=== PATIENT | female | born 1990 | race Caucasian/White ===

== ENCOUNTER 2016-11-19 13:58 | Emergency (ER) | payer BC, OTHER ==
[~2016-11-19] VITALS: Ht 165.1 cm; Wt 116.8 kg
[~2016-11-19 13:58] MED LIST: BUPR-79 PO; GLC/500 PO
[2016-11-19 14:01] VITALS: TEMP 37.7; Ht 165.1 cm; Wt 116.8 kg
[2016-11-19] MEDS ORDERED: SODIUM CHLORIDE 0.9% 1000ML 1,000 ML IV STA (14:08)
[2016-11-19] MEDS ORDERED: ONDANSETRON INJ 2 MG/ML 2 ML VIAL IV STA (14:08)
[2016-11-19 14:36] LABS: URINE APPEARANCE CLEAR (CLEAR); URINE BILIRUBIN NEG (NEG); URINE COLOR DK YELLOW; URINE NITRITE NEG (NEG); URINE SPECIFIC GRAVITY 1.027 (1.000-1.030); UROBILINOGEN NEG (NEG); ZZUR CULT IF INDIC CLEAN CATCH NO
[2016-11-19 14:40] LABS: MANUAL MICROSCOPIC REQUIRED? NO; REVIEW REQ? NO
[2016-11-19 14:43] LABS: BASO % 0.1 %; BASO ABS # 0.02 K/uL (0-0.2); COMPLETE YES; EOS % 0.5 %; HEMATOCRIT 42.6 % (37-47); IG% 0.3 %; LYMPH % 4.6 %; MEAN CELL VOLUME 87.1 fL (80-100); MEAN CORPUSCULAR HEMOGLOBIN 29.9 pg (25-34); MEAN CORPUSCULAR HGB CONC 34.3 g/dl (32-36); MEAN PLATELET VOLUME 9.1 fL (7.4-10.4); MONO % 2.6 %; NEUT % 91.9 %; PLATELET COUNT 298 K/uL (130-400); RED BLOOD COUNT 4.89 M/uL (4.2-5.4); WHITE BLOOD COUNT 17.43 K/uL (4.8-10.8)
[2016-11-19] MEDS ORDERED: KETOROLAC TROMETHAMINE 30 MG/ML VIAL IV STA (14:55)
[2016-11-19 15:04] LABS: BUN/CREATININE RATIO 13.8 (10-20); CREATININE 0.76 mg/dl (0.60-1.20); POTASSIUM 3.7 mmol/L (3.5-5.1)
--- NOTE | 2016-11-19 15:13 | EMERGENCY ROOM VISIT NOTE ---
History First contact with patient: 14:04 Chief Complaint: VOMITING Stated Complaint: FLU LIKE, VOMITING, DIARRHEA, PAIN Nursing Triage Summary: pt c/o diarrhea vomiting and back pain strated at 0400 this am History of Present Illness The patient is a 26 year old female who presents to the Emergency Room with complaints of flulike symptoms which began this morning. The patient states that approximately 10 hours ago, she was at work and began to feel very fatigued. She then developed vomiting and diarrhea and has had approximately 10 episodes each of vomiting and diarrhea since then. She reports she has body aches. She is unsure if she has had fevers. She has not taken any medication for her symptoms. She rates her overall discomfort a 10/10. She denies any abdominal pain, chest pain, cough, shortness of breath, headache, neck pain/ stiffness, or urinary symptoms. She denies any sick contacts. Review of Systems A complete 10-point Review of Systems was discussed with the patient, with pertinent positives and negatives listed in the History of Present Illness. All remaining Review of Systems questions can be considered negative unless otherwise specified. Past Medical/Surgical History Surgical Problems: (1) Hx of cholecystectomy (2) Hx of tonsillectomy Family History Cancer Diabetes mellitus Gallbladder disease Hypertension Social History Smoking Status: Current Every Day Smoker Alcohol Use: none Drug Use: none Marital Status: single Housing Status: lives with family Occupation Status: employed Current/Historical Medications Scheduled Ondasetron Odt (Zofran Odt), 4 MG SL Q6H Allergies Coded Allergies: No Known Allergies (Verified , 11/19/16) Physical Exam Vital Signs Date Time Temp Pulse Resp B/P Pulse Ox O2 Delivery O2 Flow Rate FiO2 11/19/16 16:06 94 18 102/53 97 Room Air 11/19/16 14:01 37.7 90 20 135/81 97 Room Air Physical Exam VITALS: Vitals are noted on the nurse's note and reviewed by myself. Vital signs stable. GENERAL: This is a 26-year-old female, in no acute distress, nontoxic in appearance, well-developed well-nourished. SKIN: Capillary reflex less than 2 seconds. HEENT: Normocephalic. PERRLA. EOMI. Nares patent. Mucous membranes moist. Neck is supple without nuchal rigidity. HEART: Regular rate and rhythm without murmurs gallops or rubs. LUNGS: Clear to auscultation bilaterally without wheezes, rales or rhonchi. ABDOMEN: Positive bowel sounds x 4. Soft, nontender to palpation. NEURO: Patient was alert and oriented to person place and time. Medical Decision & Procedures Laboratory Results 11/19/16 14:24 Red Blood Count 4.89, Mean Corpuscular Volume 87.1, Mean Corpuscular Hemoglobin 29.9, Mean Corpuscular Hemoglobin Concent 34.3, Mean Platelet Volume 9.1, Neutrophils (%) (Auto) 91.9, Lymphocytes (%) (Auto) 4.6, Monocytes (%) (Auto) 2.6, Eosinophils (%) (Auto) 0.5, Basophils (%) (Auto) 0.1, Neutrophils # (Auto) 16.03, Lymphocytes # (Auto) 0.80, Monocytes # (Auto) 0.45, Eosinophils # (Auto) 0.08, Basophils # (Auto) 0.02 11/19/16 14:24 Test 11/19/16 14:20 11/19/16 14:24 Urine Color DK YELLOW Urine Appearance CLEAR (CLEAR) Urine pH 5.0 (4.5-7.5) Urine Specific [place] 1.027 (1.000-1.030) Urine Protein NEG (NEG) Urine Glucose (UA) NEG (NEG) Urine Ketones NEG (NEG) Urine Occult Blood NEG (NEG) Urine Nitrite NEG (NEG) Urine Bilirubin NEG (NEG) Urine Urobilinogen NEG (NEG) Urine Leukocyte Esterase NEG (NEG) Urine Test NEG (NEG) Influenza Type A Antigen Neg for Influ A (NEG) Influenza Type B Antigen Neg for Influ B (NEG) White Blood Count 17.43 K/uL (4.8-10.8) Red Blood Count 4.89 M/uL (4.2-5.4) Hemoglobin 14.6 g/dL (12.0-16.0) Hematocrit 42.6 % (37-47) Mean Corpuscular Volume 87.1 fL (80-100) Mean Corpuscular Hemoglobin 29.9 pg (25-34) Mean Corpuscular Hemoglobin Concent 34.3 g/dl (32-36) Platelet Count 298 K/uL (130-400) Mean Platelet Volume 9.1 fL (7.4-10.4) Neutrophils (%) (Auto) 91.9 % Lymphocytes (%) (Auto) 4.6 % Monocytes (%) (Auto) 2.6 % Eosinophils (%) (Auto) 0.5 % Basophils (%) (Auto) 0.1 % Neutrophils # (Auto) 16.03 K/uL (1.4-6.5) Lymphocytes # (Auto) 0.80 K/uL (1.2-3.4) Monocytes # (Auto) 0.45 K/uL (0.11-0.59) Eosinophils # (Auto) 0.08 K/uL (0-0.5) Basophils # (Auto) 0.02 K/uL (0-0.2) RDW Standard Deviation 42.0 fL (36.4-46.3) RDW Coefficient of Variation 13.2 % (11.5-14.5) Immature Granulocyte % (Auto) 0.3 % Immature Granulocyte # (Auto) 0.05 K/uL (0.00-0.02) Anion Gap 8.0 mmol/L (3-11) Est Creatinine Clear Calc Drug Dose 144.6 ml/min Estimated GFR () 126.4 Estimated GFR (Non- 109.0 BUN/Creatinine Ratio 13.8 (10-20) Calcium Level 9.0 mg/dl (8.5-10.1) Total Bilirubin 0.7 mg/dl (0.2-1) Aspartate Amino Transf (AST/SGOT) 18 U/L (15-37) Alanine Aminotransferase (ALT/SGPT) 26 U/L (12-78) Alkaline Phosphatase 42 U/L (45-117) Total Protein 8.5 gm/dl (6.4-8.2) Albumin 4.2 gm/dl (3.4-5.0) Globulin 4.3 gm/dl (2.5-4.0) Albumin/Globulin Ratio 1.0 (0.9-2) Lipase 103 U/L (73-393) Medications Administered Medications (Trade) Dose Ordered Sig/[place] Route Start Time Stop Time Status Last Admin Dose Admin Sodium Chloride (Nss 1000ml) 1,000 ml @ 999 mls/hr Q1H1M STAT IV 11/19/16 14:08 11/19/16 15:08 DC 11/19/16 14:33 999 MLS/HR Ondansetron HCl (Zofran Inj) 4 mg NOW STAT IV 11/19/16 14:08 11/19/16 14:13 DC 11/19/16 14:34 4 MG Ketorolac Tromethamine (Toradol Inj) 30 mg NOW STAT IV 11/19/16 14:55 11/19/16 14:56 DC 11/19/16 15:25 30 MG Medical Decision Differential diagnosis includes gastroenteritis, influenza, viral syndrome, colitis, appendicitis, cholecystitis, among others. The patient was evaluated as above. Labs were drawn and IV access was obtained. Imaging studies were performed and read by radiology as above. The patient was medicated with normal saline solution, 4 mg Zofran IV and 30 mg Toradol IV. The patient was reassessed multiple times during their stay in the emergency department and remained in stable condition. The patient is a 26-year-old female who presents today complaining of vomiting, diarrhea and body aches. Labs revealed a leukocytosis consistent with infection or vomiting. No anemia or concerning electrolyte abnormalities. Urinalysis was not suggestive of infection. Urine was negative. Influenza was negative. The patient felt better after IV hydration, Toradol and Zofran. She will follow-up with her primary care provider or return for worsening symptoms. Based on the patient's presentation, lab results, and imaging studies, I feel the patient is stable for outpatient treatment. Discharge instructions were reviewed with the patient. The patient verbalized understanding of my assessment and treatment plan and was discharged home in good condition. Impression Primary Impression: Nausea, vomiting, and diarrhea Departure Information Dispostion Home / Self-Care Condition GOOD Prescriptions Ondasetron Odt (ZOFRAN ODT) 4 Mg Tab 4 MG SL Q6H for Nausea, #15 TAB Prov: Sara Steen PA-C 11/19/16 Referrals Mayito Linn M.D. (PCP) Patient Instructions My [facility] Additional Instructions You have been treated in the Emergency Department for your vomiting and diarrhea. Your symptoms are likely due to a viral gastrointestinal illness which should resolve without treatment in 2-3 days. You have been prescribed Zofran to be used for any nausea or vomiting. Take as prescribed. For pain control, you can use the following lepy-vyy-qktkkoo medicines (if >12 yo): - Regular strength (325mg/tab) Tylenol (acetaminophen) 2 tabs every 4-6 hours as needed. Do not exceed 12 tablets in a 24 hour period. Avoid taking more than 4 grams (4000 mg) of Tylenol per day. This includes any other sources of acetaminophen you may take on a regular basis. - Regular strength (200 mg/tab) Advil (ibuprofen) 1-2 tabs every 4-6 hours as needed. Do not exceed a dose of 3200 mg per day. Drink plenty of water and stay well hydrated. As with any trip to the Emergency Department, you should follow-up with your Primary Care Provider from today's visit. Return to the emergency department if your symptoms persist despite treatment plan outlined above or if the following symptoms occur: increased fevers, chills , worsening nausea/vomiting, blood in your stool or urine.
[2016-11-19] MEDS ORDERED: ONDA4TAB10 SL (16:00)
[2016-11-19 16:06] VITALS: BP 102/53; PULSE 94; O2SAT 97
== END 2016-11-19 16:16 | disposition home or self-care (01) ==
LOC: C.EDB 14:01 → C.EDC 16:16
DX: R11.2 Nausea with vomiting, unspecified (principal); F17.200 Nicotine dependence, unspecified, uncomplicated; R19.7 Diarrhea, unspecified; Z90.49 Acquired absence of other specified parts of digestive tract

== ENCOUNTER → 2017-12-26 | Outpatient (CLI) | payer BC | END | disposition home or self-care (01) | LOC: C.LABSPEC 11:30 | PROVIDERS: ATTEND Obstetrics & Gynecology | DX: Z34.01 Encounter for supervision of normal first pregnancy, first trimester (principal) ==

== ENCOUNTER → 2018-01-02 | Outpatient (CLI) | payer BC | END | disposition home or self-care (01) | LOC: C.PAPS 14:31 | PROVIDERS: ATTEND Obstetrics & Gynecology | DX: Z34.01 Encounter for supervision of normal first pregnancy, first trimester (principal) ==

== ENCOUNTER → 2018-01-02 | Outpatient (CLI) | payer BC ==
[2018-01-02 13:32] LABS: BASO % 0.4 %; BASO ABS # 0.05 K/uL (0-0.2); EOS % 3.5 %; EOS ABS # 0.44 K/uL (0-0.5); HEMATOCRIT 38.7 % (37-47); HEMOGLOBIN 13.2 g/dL (12.0-16.0); IG# 0.06 K/uL (0.00-0.02); LYMPH % 35.3 %; LYMPH ABS # 4.47 K/uL (1.2-3.4); MEAN CELL VOLUME 88.6 fL (80-100); MEAN CORPUSCULAR HEMOGLOBIN 30.2 pg (25-34); MEAN CORPUSCULAR HGB CONC 34.1 g/dl (32-36); MEAN PLATELET VOLUME 8.6 fL (7.4-10.4); MONO % 7.3 %; MONO ABS # 0.92 K/uL (0.11-0.59); NEUT ABS # 6.73 K/uL (1.4-6.5); PLATELET COUNT 361 K/uL (130-400); RED CELL DISTRIBUTION WIDTH CV 13.9 % (11.5-14.5); RED CELL DISTRIBUTION WIDTH SD 45.1 fL (36.4-46.3); WHITE BLOOD COUNT 12.67 K/uL (4.8-10.8)
== END | disposition home or self-care (01) ==
LOC: C.LAB1850 12:39
PROVIDERS: ATTEND Obstetrics & Gynecology
DX: Z34.01 Encounter for supervision of normal first pregnancy, first trimester (principal)

== ENCOUNTER 2018-09-03 14:51 | Observation (INO) ==
[2018-09-03] MEDS ORDERED: CEFAZOLIN 3000MG/72.5 ML BAG IV ONE ×2 (15:33→16:10)
[2018-09-03 15:43] LABS: Basophils # (auto) 0.07 K/uL (0-0.2); Basophils % (auto) 0.6 %; Eosinophils # (auto) 0.36 K/uL (0-0.5); Eosinophils % (auto) 3.1 %; Hematocrit (blood only) 38.5 % (37-47); Hemoglobin 12.4 g/dL (12.0-16.0); Immature Granulocytes % (auto) 1.7 %; Lymphocytes # (auto) 3.22 K/uL (1.2-3.4); Lymphocytes % (auto) 27.8 %; Mean Corpuscular Hgb Conc 32.2 g/dL (32-36); Mean Corpuscular Volume 90.2 fL (80-100); Mean Platelet Volume 8.7 fL (7.4-10.4); Monocytes # (auto) 0.58 K/uL (0.11-0.59); Neutrophils # (auto) 7.16 K/uL (1.4-6.5); Neutrophils % (auto) 61.8 %; Platelet Count 369 K/uL (130-400); RDW Coefficient of Variation 14.9 % (11.5-14.5); RDW Standard Deviation 48.8 fL (36.4-46.3); Red Blood Count 4.27 M/uL (4.2-5.4); White Blood Count 11.59 K/uL (4.8-10.8)
[2018-09-03 16:00] LABS: Albumin Level 2.8 gm/dl (3.4-5.0); Calcium 8.9 mg/dl (8.5-10.1); Creatinine Clr Calc Pharmacy 174.8 ml/min; Est GFR (Non-African American) 114.8; Potassium 3.9 mmol/L (3.5-5.1)
[2018-09-03] MEDS ORDERED: LACTATED RINGER'S 1,000 ML IV SCH (16:00)
[2018-09-03 16:03] LABS: Albumin Globulin Ratio 0.6 (0.9-2); Bilirubin,Total 0.2 mg/dl (0.1-1); Globulin 4.6 gm/dl (2.5-4.0); Total Protein 7.4 gm/dl (6.4-8.2)
[2018-09-03] MEDS ORDERED: MIDAZOLAM HCL 1 MG/ML 2ML VIAL ONE (16:06)
[2018-09-03] MEDS ORDERED: fentaNYL citrate 100 MCG/2 ML VIAL ONE ×2 (16:06→16:47)
[2018-09-03] MEDS ORDERED: LIDOCAINE HCL 2% 2 ML VIAL/AMP(20MG/ML) INFIL ONE (16:07)
[2018-09-03] MEDS ORDERED: PROPOFOL IV EMULSION 10 MG/ML 20 ML VIAL IV ONE (16:07)
--- NOTE | 2018-09-03 16:17 | Anesthesiology Consultation ---
Date of Service September 03, 2018 Assessment & Plan (1) Encounter for pre-operative examination: Chart Review Chart Review: Acceptable Risk for Surgery and Patient NOT seen in Pre Admission Testing Consults Requested none ASA ASA3 Proposed Anesthesia Anesthesia Type: General Risk / Benefits Reviewed With: PT / POA / Parent / Guardian, Accepts Plan and Informed Consent Obtained NPO Date Last Intake of Fluids: 09/03/18 Time Last Intake of Fluids: 12:00 Date Last Intake of Solids: 09/02/18 Time Last Intake of Solids: 18:00 History Surgery Operation Date: 09/03/18 08:20 Proposed Procedures p Incision and Drainage of Operative Site S/P - Valentin Hoffman MD, FACOG Height/Weight Height: 5 ft 5 in Weight: 150.3 kg Allergies Allergy/AdvReac Type Severity Reaction Status Date / Time No Known Allergies Allergy Verified 09/03/18 15:59 Medications Home Medications Medication Instructions Recorded Confirmed Last Taken vit-iron fum-folic ac 1 tab PO DAILY 08/21/18 09/03/18 09/03/18 [ Vitamin] cephalexin 500 mg PO QID 09/03/18 09/03/18 09/03/18 Past Medical History Medical History History of tooth extraction Past Surgical History Surgical History History of cholecystectomy History of tonsillectomy Social History Smoking Status: Current every day smoker tobacco type: cigarettes Smoking cigarettes per day: 5 Hx Alcohol Use: No Hx Substance Use: No substance use type: former substance user and marijuana Review of Systems Respiratory: no cough and no dyspnea Cardiovascular: no chest pain Physical Exam Vital Signs Last Vital Signs Temp 36.8 C 09/03/18 15:59 Pulse 69 09/03/18 15:59 Resp 16 09/03/18 15:59 BP 141/77 H 09/03/18 15:59 Pulse Ox 97 09/03/18 15:59 Testing Laboratory Results 09/03/18 15:35 09/03/18 15:35
--- NOTE | 2018-09-03 16:22 | History and Physical Report ---
DATE OF ADMISSION: 09/03/2018 HISTORY OF PRESENT ILLNESS: Kateryna was seen in the office for an infected incision. She had a section on 08/22/[address] Reese. She was doing well until recently, had a wound infection that was superficial and was treated with oral antibiotics. The patient reported the incision opening and was seen in the office by Dr. Jacob today. At that time, it was noted to be open, and on probing the incision, the opening was easily undermined well under the actual visual opening, thus the incision likely needed incision and debridement. Patient is not currently feverish, but she is feeling pain from the incision. She does report some pus-like discharge from the incision as well. She has no significant vaginal bleeding. She is doing well. She is bottle feeding. She is not suffering from depression. PAST MEDICAL HISTORY: She is obese, otherwise healthy. PAST SURGICAL HISTORY: Gallbladder and recent as discussed. MEDICATIONS: Antibiotics, prenatals. DRUG ALLERGIES: None. PHYSICAL EXAMINATION: VITAL SIGNS: Blood pressure 134/82, pulse rate 96 and regular. CHEST: Clear. CARDIOVASCULAR: Normal rate and rhythm. No audible murmur. ABDOMEN: There is some mild redness around the incision. The incision is open, it is a midline incision on the abdomen. There is a gap that is approximately 3-4 cm and easily undermined. There is pus-like material coming out from the incision as well. It is exquisitely tender and not further probed due to patient discomfort. PELVIC: Deferred at this time. EXTREMITIES: Negative. IMPRESSION AND PLAN: Recommend incision and debridement and likely drainage of incision. We discussed packing as well, and we will consult wound care team in the morning. Discussed likely placing a vacuum tomorrow. We will give her preoperative antibiotics, control pain and IV antibiotics tonight. Discussed the risks of surgery including but not limited to risks of bleeding, infection, damage to internal structures, deep vein thrombosis, and pulmonary embolus. We discussed the option of not doing surgery, but I think her incision infection is worsening, wound is opening, and I highly recommended the surgery. Patient agrees.
[2018-09-03] MEDS ORDERED: SUCCINYLCHOLINE CHLORIDE 20 MG/ML 10 ML VIAL ONE (16:47)
[2018-09-03] MEDS ORDERED: ONDANSETRON INJ 2 MG/ML 2 ML VIAL ONE (16:55)
[2018-09-03] MEDS ORDERED: BISACODYL 10 MG SUPP PR PRN (17:01)
[2018-09-03] MEDS ORDERED: MAGNESIUM HYDROXIDE SUSP 30 ML UDC PO PRN (17:01)
[2018-09-03] MEDS ORDERED: KETOROLAC 30 MG/ML VIAL IV PRN (17:01)
[2018-09-03] MEDS ORDERED: SENNA 8.6 MG TAB PO PRN (17:01)
[2018-09-03] MEDS ORDERED: ONDANSETRON INJ 2 MG/ML 2 ML VIAL IV PRN (17:01)
[2018-09-03] MEDS ORDERED: PROMETHAZINE HCL 25 MG in SODIUM CHLORIDE 0.9% 50 ML IV PRN (17:01)
--- NOTE | 2018-09-03 17:04 | Post Operative Brief Note ---
Immediate Post Op Note v1 Date of Surgery September 03, 2018 Pre & Post Diagnosis Operation Date: 09/03/18 08:20 Pre-Op Diagnosis: Infected Wound Post-Op Diagnosis: Infected Wound Procedure Operation Date: 09/03/18 08:20 <No data on this case meets the specified criteria> Surgeon Valentin Hoffman MD, FACOG Conference Planner none Estimated Blood Loss 10 Findings Consistent with Post-Op Diagnosis
[2018-09-03] MEDS ORDERED: PIPERACILLIN/TAZOBACTAM 4.5 GM in DEXTROSE 5% 100 ML IV SCH (17:14)
[2018-09-03] MEDS ORDERED: PIPERACILL/TAZOBAC CONSULT ACTIVE PRN (17:14)
[2018-09-03] MEDS ORDERED: HYDROmorphone INJ 1 MG/ML SYRINGE ONE (17:32)
--- NOTE | 2018-09-03 18:17 | Anesthesiology Progress Note ---
Date of Service September 03, 2018 Anesthesia Post Procedure Vital Signs Vital Signs: Temp Pulse Pulse Pulse Resp BP BP 09/03/18 18:00 76 16 124/80 09/03/18 17:50 36.5 C 78 16 129/82 09/03/18 17:40 75 16 126/69 09/03/18 17:30 74 16 118/83 09/03/18 17:20 77 16 126/80 09/03/18 17:12 36.9 C 77 16 134/76 09/03/18 15:59 36.8 C 69 16 141/77 H 09/03/18 15:05 36.7 C 96 H 18 134/82 Pulse Ox 09/03/18 18:00 96 09/03/18 17:50 96 09/03/18 17:40 98 09/03/18 17:30 98 09/03/18 17:20 100 09/03/18 17:12 96 09/03/18 15:59 97 09/03/18 15:05 96 Pain Intensity Abdomen: Pain Intensity: 4 Notes Mental Status: alert / awake / arousable Patient Amnestic to Procedure: Yes Nausea / Vomiting: adequately controlled Pain: adequately controlled Airway Patency, RR, SpO2: stable & adequate BP & HR: stable & adequate Hydration State: stable & adequate Anesthetic Complications: no major complications apparent
[2018-09-03] MEDS: LACTATED RINGER'S 1,000 ML IV SCH ×2 (18:30→20:23)
[2018-09-03] MEDS ORDERED: PIPERACILLIN/TAZOBACTAM 4.5 GM in DEXTROSE 5% 100 ML IV ONE (19:00)
[2018-09-03] MEDS: MEPERIDINE HCL 50 MG/ML CARP IV PRN (22:06)
[2018-09-04] MEDS: PIPERACILLIN/TAZOBACTAM 4.5 GM in DEXTROSE 5% 100 ML IV SCH ×4 (00:48→23:32)
--- NOTE | 2018-09-04 01:10 | Operative Report ---
DATE OF OPERATION: 09/03/2018 PREOPERATIVE DIAGNOSIS: Wound infection. POSTOPERATIVE DIAGNOSIS: Wound infection. PROCEDURE: Incision and debridement of infected wound. SURGEON: Valentin Hoffman MD HEADER SETUP OPERATOR: None. ANESTHETIC: General. DRAINS: Davis catheter. COMPLICATIONS: None. DISPOSITION: Recovery room. SPECIMENS: Wound cultures. DESCRIPTION OF PROCEDURE: The patient was given 3 grams of Ancef after being given general anesthetic, prepped and draped in supine position. A Davis catheter placed in her bladder. Urine was clear. The procedure was begun by extending the open part of her incision that essentially broke down on just gentle touching of the incision. I then was fully able to break it down all the way to the entire level to the fascial layer. There was no disruption of the fascia, thus this was not a dehiscence, it was a wound infection. There was pus in the area, so a wound culture was performed after debridement of the incision to remove any obviously infected and nonviable areas. We did this with Metzenbaums. Vascularity seemed acceptable at this stage. We generously irrigated with sterile normal saline and then suctioned and then placed both a 2-inch and a 1-inch plain gauze soaked with sterile normal saline and then bandage applied. At the end of the procedure, sponge and instrument counts correct. I attest to the content of the Intraoperative Record and any orders documented therein. Any exception s are noted below.
[2018-09-04] MEDS: OXYCODONE/ACETAMINOPHEN 5mg/325mg TAB PO PRN ×5 (04:43→23:23)
[2018-09-04] MEDS: IBUPROFEN 600 MG TAB PO PRN ×5 (04:43→23:23)
[2018-09-04 06:33] LABS: Basophils # (auto) 0.07 K/uL (0-0.2); Basophils % (auto) 0.6 %; Eosinophils # (auto) 0.51 K/uL (0-0.5); Eosinophils % (auto) 4.3 %; Hematocrit (blood only) 34.1 % (37-47); Hemoglobin 10.9 g/dL (12.0-16.0); Immature Granulocytes % (auto) 0.9 %; Lymphocytes # (auto) 2.82 K/uL (1.2-3.4); Mean Corpuscular Volume 89.5 fL (80-100); Mean Platelet Volume 8.1 fL (7.4-10.4); Monocytes # (auto) 0.64 K/uL (0.11-0.59); Monocytes % (auto) 5.4 %; Neutrophils # (auto) 7.62 K/uL (1.4-6.5); Neutrophils % (auto) 64.8 %; Platelet Count 326 K/uL (130-400); RDW Coefficient of Variation 14.9 % (11.5-14.5); RDW Standard Deviation 49.5 fL (36.4-46.3); Red Blood Count 3.81 M/uL (4.2-5.4); White Blood Count 11.76 K/uL (4.8-10.8)
--- NOTE | 2018-09-04 06:50 | Progress Note ---
Date of Service September 04, 2018 Postop day #1 from incision and drainage and debridement of wound infection. Patient is doing well she has voided she has had a bowel movement she is passing flatus she is ambulating she has no calf pain she is tender in the incision area she has no other concerns Assessment & Plan (1) Wound infection after surgery: Patient is doing well she is on Zosyn incision is open and packed we will wait for wound care to assess continue IV antibiotics for now Physical Exam 2 Vital Signs (Past 24 Hours): Last Vital Signs Temp 36.8 C 09/04/18 04:00 Pulse 76 09/04/18 04:00 Resp 20 09/04/18 04:00 BP 138/76 09/04/18 04:00 Pulse Ox 96 09/04/18 04:00 Physical Exam: Vital signs are stable chest clear pulses regular Abdomen soft nontender incision area is tender however no significant bleeding when dressing is partially removed gauze with saline noted as well. Extremity exam negative
[2018-09-04 07:03] LABS: Creatinine Clr Calc Pharmacy 163.4 ml/min; Est GFR (African American) 122.6; Est GFR (Non-African American) 105.8
[2018-09-04] MEDS: MEPERIDINE HCL 50 MG/ML CARP IV PRN ×2 (11:00→15:48)
--- NOTE | 2018-09-04 13:59 | Obstetrical Progress Note ---
Date of Service September 04, 2018 Subjective pt feeling much better. she is Physical Exam 2 Vital Signs (Past 24 Hours): Last Vital Signs Temp 36.7 C 09/04/18 11:45 Pulse 60 09/04/18 11:45 Resp 20 09/04/18 11:45 BP 119/80 09/04/18 11:45 Pulse Ox 97 09/04/18 11:45
--- NOTE | 2018-09-04 14:16 | Obstetrical Progress Note ---
Date of Service September 04, 2018 Assessment & Plan (1) Wound infection after surgery: pt aware that they will now work on getting her the equipment for wound vac through her insurance. in meantime, cont iv abx and plan postop course. she has spoken with the wound clinic nurse and is aware that she will come to their office m, w, f. she asks how long it will take wound to heal and I advised her to ask the wound clinic as they are more experienced. i sent to her local pharm via [facility] script for augmentin bid x 7d and diflucan take one, repeat in one wk, in case she has sx of yeast infection. Also she was checked on [place] PDMP and no issues identified and I gave her spouse script for 25# tabs percocet 5/ 325. Subjective pt feels better. wound vac has been applied. we are cont iv abx. Physical Exam 2 Vital Signs (Past 24 Hours): Last Vital Signs Temp 36.7 C 09/04/18 11:45 Pulse 60 09/04/18 11:45 Resp 20 09/04/18 11:45 BP 119/80 09/04/18 11:45 Pulse Ox 97 09/04/18 11:45 Constitutional: WD/WN, vitals as above
[2018-09-05] MEDS: IBUPROFEN 600 MG TAB PO PRN ×2 (06:06→09:52)
[2018-09-05] MEDS: OXYCODONE/ACETAMINOPHEN 5mg/325mg TAB PO PRN ×2 (06:07→09:51)
[2018-09-05 06:32] LABS: Basophils # (auto) 0.07 K/uL (0-0.2); Basophils % (auto) 0.7 %; Eosinophils # (auto) 0.67 K/uL (0-0.5); Eosinophils % (auto) 7.2 %; Hematocrit (blood only) 34.2 % (37-47); Immature Granulocytes # (auto) 0.08 K/uL (0.00-0.02); Immature Granulocytes % (auto) 0.9 %; Lymphocytes # (auto) 3.86 K/uL (1.2-3.4); Lymphocytes % (auto) 41.2 %; Mean Corpuscular Hgb Conc 32.2 g/dL (32-36); Mean Corpuscular Volume 89.8 fL (80-100); Mean Platelet Volume 8.7 fL (7.4-10.4); Monocytes % (auto) 6.4 %; Neutrophils # (auto) 4.08 K/uL (1.4-6.5); Neutrophils % (auto) 43.6 %; Platelet Count 338 K/uL (130-400); RDW Coefficient of Variation 15.1 % (11.5-14.5); RDW Standard Deviation 49.4 fL (36.4-46.3); Red Blood Count 3.81 M/uL (4.2-5.4); White Blood Count 9.36 K/uL (4.8-10.8)
[2018-09-05 07:11] LABS: Creatinine Clr Calc Pharmacy 177.2 ml/min; Est GFR (African American) 135.3; Est GFR (Non-African American) 116.7
--- NOTE | 2018-09-05 08:12 | Obstetrical Progress Note ---
Date of Service September 05, 2018 Assessment & Plan (1) Wound infection after surgery: pt awaiting word that wound vac is ready for her discharge. will send home with plan for augmentin 875 bid x 7d, and given 2 doses of diflucan in case yeast sx. she will use at her discretion. also gave her percocet script but advised usin more prior to wound vac changes. encouraged otherwise routine post c/s care. she should plan 6wk pp visit and wound care appts per wound clinic. denies ?s. Subjective pt doing well. eating, voiding, ambulating to br. pain well controlled, but does complain of pain more on right abdomen than left. passing gas. pain medicine helping and she is spacing out dosing. Physical Exam 2 Vital Signs (Past 24 Hours): Last Vital Signs Temp 36.7 C 09/05/18 03:30 Pulse 66 09/05/18 03:30 Resp 20 09/05/18 03:30 BP 118/76 09/04/18 23:35 Pulse Ox 96 09/05/18 03:30 Constitutional: WD/WN, vitals as above Gastrointestinal (Abdomen): Inspection/Auscultation: abdomen normal to inspection Percussion/Palpation: abdomen soft normal bowel sounds. midline incision open with wound vac applied. lower edge and suprapubically with less erythema and edema as previous. no redness on right side or palp lump
[2018-09-05] MEDS: PIPERACILLIN/TAZOBACTAM 4.5 GM in DEXTROSE 5% 100 ML IV SCH (08:14)
--- NOTE | 2018-09-09 07:36 | Discharge Summary ---
HOSPITAL COURSE: Kateryna was admitted on September 03 with a wound infection post-C section. She had an open incision and debridement of the incision and packing. Subsequently, she was met discharge criteria on September 05. She was seen by Dr. Jacob. At that time, she was doing well. Wound VAC care was set up and she was placed on Augmentin and given Diflucan in case she gets yeast infection. Pain control was also given. PHYSICAL EXAMINATION: VITAL SIGNS: Stable. She was afebrile. CHEST: Clear. ABDOMEN: Abdominal exam benign. Abdomen is soft, nontender. Incision was healing appropriately and had minimal redness. IMPRESSION AND PLAN: Postop day #2. Discharged home on Augmentin, pain control and Diflucan. Had followup with wound VAC and will have follow up in the office.
--- NOTE | 2018-09-10 13:25 | Coding Query ---
DEBRIDEMENT DOCUMENTATION To promote full compliance with coding requirements relating to patient care, physician participation is requested in all cases of silk washing machine operator uncertainty. Please assist us with the question(s) below: Please place an X in the parenthesis (x). If other, please document the finding: Please provide further information regarding the debridement of the wound for appropriate coding selection: y Instrument Used: ( X) Scissors ( X) Scalpel ( ) Curette ( ) Other (please specify): y Depth of Debridement: ( ) Skin (X ) Skin and Subcutaneous Tissue ( ) Skin, Subcutaneous Tissue and Muscle ( ) Skin, Subcutaneous Tissue, Muscle and Bone ( ) Other (please specify): y Please Specify the Size of Debridement in cm2: 10 Thank you for your assistance, Pushpa Staton - Oncology Pharmacist PRINCESS
== END 2018-09-05 13:45 | disposition home health service (06) ==
LOC: ED 14:51 → OR 16:15 → 4N 16:15